=== PATIENT | male | born 1945 | race Caucasian/White ===

== ENCOUNTER 2018-03-24 10:29 | Emergency (ER) | payer MEDICARE ==
[2018-03-24 10:42] VITALS: RESP 18; TEMP 98.4
--- NOTE | 2018-03-24 10:58 | ED ---
General Adult HPI - General Chief complaint: Fall Stated complaint: Fall Time Seen by Provider: 03/24/18 10:48 Source: patient, RN notes reviewed Mode of arrival: ambulatory Limitations: no limitations - History of Present Illness Initial comments: Patient is a 72-year-old male presented to the emergency room today with a chief complaint of a fall that occurred 2 days ago. He states he was climbing up a ladder went to grab a board that was not attached and fell backwards onto dirt ground. Patient states he fell onto his back and then hit the back of his head. He states he did not lose consciousness. He states she's not on a blood thinner. He states he was able to get up and he continued to work. Patient states he was a little sore yesterday and he thought it would get better but this morning woke up and had worse pain in the neck and lower back. Patient states that he believes it's muscle wasn't worse with certain movements. Patient states he feels around both left and right side of the neck and also on the lower back. Patient denies any other complaints or symptoms. Patient denies any recent fever, chills, shortness of breath, chest pain, abdominal pain , nausea or vomiting, numbness or tingling, dysuria or hematuria, constipation or diarrhea, headaches or visual changes, or any other complaints. - Related Data Home Medications Medication Instructions Recorded Confirmed Aspirin EC [Ecotrin Low Dose] 81 mg PO DAILY 03/24/18 03/24/18 Fexofenadine HCl [Janie Allergy] 180 mg PO DAILY 03/24/18 03/24/18 Fluticasone Nasal [place] [Flonase 1 - 2 spr EA NOSTRIL DAILY PRN 03/24/18 Nasal [place]] Multivitamins, Thera [Multivitamin 1 tab PO DAILY 03/24/18 03/24/18 (formulary)] [place]-3 Fatty Acids [[place]-3] 1,000 mg PO DAILY 03/24/18 03/24/18 PARoxetine [Paxil] 20 mg PO HS 03/24/18 03/24/18 Previous Rx's Medication Instructions Recorded Cyclobenzaprine [Flexeril] 5 mg PO TID #8 tab 03/24/18 Allergies Allergy/AdvReac Type Severity Reaction Status Date / Time No Known Allergies Allergy Verified 03/24/18 11:25 Review of Systems ROS Statement: Those systems with pertinent positive or pertinent negative responses have been documented in the HPI. ROS Other: All systems not noted in ROS Statement are negative. Past Medical History Past Medical History: No Reported History History of Any Multi-Drug Resistant Organisms: None Reported Past Surgical History: No Surgical Hx Reported Past Psychological History: Depression Smoking Status: Never smoker Past Alcohol Use History: Daily Past Drug Use History: None Reported General Exam - General Exam Comments Initial Comments: General: The patient is awake and alert, in no distress, and does not appear acutely ill. Eye: Pupils are equal, round and reactive to light, extra-ocular movements are intact. No nystagmus. There is normal conjunctiva bilaterally. No signs of icterus. Ears, nose, mouth and throat: There are moist mucous membranes and no oral lesions. Neck: The neck is supple, there is no tenderness or JVD. Cardiovascular: There is a regular rate and rhythm. No murmur, rub or gallop is appreciated. Respiratory: Lungs are clear to auscultation, respirations are non-labored, breath sounds are equal. No wheezes, stridor, rales, or rhonchi. Gastrointestinal: Soft, non-distended, non-tender abdomen without masses or organomegaly noted. There is no rebound or guarding present. No CVA tenderness. Musculoskeletal: Normal appearance of the cervical, thoracic, lumbar spine with no obvious step-off or deformity. Patient has no tenderness midline of the cervical or thoracic spine. Tender at the L1-L2 and L3-L4 area of the lumbar spine. Patient does have paravertebral tenderness of the cervical spine both left and right side. Strength 5/5. Sensation intact. Pulses equal bilaterally 2+ . Neurological: A&O x 3. CN II-XII intact, There are no obvious motor or sensory deficits. Coordination appears grossly intact. Speech is normal. Skin: Skin is warm and dry and no rashes or lesions are noted. Psychiatric: Cooperative, appropriate mood & affect, normal judgment. Limitations: no limitations Course Vital Signs 03/24/18 10:36 Temperature 98.4 F Pulse Rate 72 Respiratory 18 Rate Blood Pressure 142/73 O2 Sat by Pulse 97 Oximetry Medical Decision Making - Medical Decision Making Patient reexamined at this time shows no signs of distress. His CT of the head and neck negative. X-ray of the lumbar spine is negative. Results were discussed with the patient. Patient's pain is in the muscular areas. Is advised to use heat. Short course of anti-inflammatories for pain. We discussed about possible muscle relaxant. Advised may make you drowsy and to be careful while taking these. Patient states he does not plan on doing much over the next few days. He plans follow-up with his family doctor. Patient advised return for any other concerns. Disposition Clinical Impression: Fall, Cervical strain Disposition: HOME SELF-CARE Condition: Good Instructions: Cervical Strain (ED) Additional Instructions: Please use medication as discussed. Please follow-up with family doctor in the next 2 days of symptoms have not improved. Please return to emergency room if the symptoms increase or worsen or for any other concerns. Prescriptions: Cyclobenzaprine [Flexeril] 5 mg PO TID #8 tab Is patient prescribed a controlled substance at d/c from ED?: No Referrals: Leanne Lantigua MD [Primary Care Provider] - 1-2 days Time of Disposition: 11:55
--- NOTE | 2018-03-24 11:36 | XR ---
PROCEDURE: XR lumbar spine 3V DATE AND TIME: 03/24/2018 11:07 AM REFERRING PHYSICIAN: Ramana Borrero CLINICAL INDICATION: PHH, Pain TECHNIQUE: Department protocol. COMPARISON: None FINDINGS: There is no fracture or malalignment. There is dextrocurvature, with prominently advanced spondylosis changes at several levels. The soft tissues are unremarkable. IMPRESSION: NO ACUTE PROCESS.
--- NOTE | 2018-03-24 11:42 | CT ---
EXAMINATION TYPE: CT brain richmond mckenna DATE OF EXAM: 03/24/2018 COMPARISON: NONE HISTORY: Fall from 6-7 feet on 03/22/18. Posterior head injury with neck pain CT DLP: 1547.8 mGycm Automated exposure control for dose reduction was used. TECHNIQUE: CT scan of the head and cervical spine are performed without contrast. FINDINGS: There is no acute intracranial hemorrhage, mass effect, or midline shift identified. The ventricles and sulci are within normal limits in size. The globes are intact and the visualized sin uses are clear. Cervical spine is visualized in its entirety from C1 through upper thoracic levels and demonstrates s atisfactory alignment without evidence of acute fracture or dislocation. Prevertebral soft tissue ap pears within normal limits. Prominent multilevel cervical spondylosis changes are noted. The C1-C2 ar ticulation is unremarkable. IMPRESSION: 1. There is no acute fracture or dislocation evident in the cervical spine. 2. No acute intracranial hemorrhage, mass effect, or midline shift is seen.
[2018-03-24 12:10] VITALS: BP 139/78; PULSE 67
== END 2018-03-24 12:10 | disposition home or self-care (01) ==
LOC: EC 10:29
DX: S16.1XXA Strain of muscle, fascia and tendon at neck level, initial encounter (principal); M54.5 Low back pain; F32.9 Major depressive disorder, single episode, unspecified; Z79.82 Long term (current) use of aspirin; Z79.899 Other long term (current) drug therapy; W17.89XA Other fall from one level to another, initial encounter; Y93.89 Activity, other specified; Y92.71 Barn as the place of occurrence of the external cause
CPT/HCPCS: 70450; 72100; 72125; 99284

== ENCOUNTER → 2018-06-24 | Outpatient (CLI) | payer MEDICARE | LOC: PTMAIN 09:55 | PROVIDERS: ATTEND Otolaryngology | DX: K21.9 Gastro-esophageal reflux disease without esophagitis (principal) | CPT/HCPCS: 31579 ==

== ENCOUNTER → 2018-10-03 | Outpatient (CLI) | payer MEDICARE ==
[2018-10-03 10:53] LABS: HCT 40.9 % (39.0-53.0); HGB 13.2 gm/dL (13.0-17.5); MCH 31.8 pg (25.0-35.0); MCHC 32.3 g/dL (31.0-37.0); MCV 98.5 fL (80.0-100.0); Mean Platelet Volume 7.1; Platelet Count 201 k/uL (150-450); RBC 4.15 m/uL (4.30-5.90); RDW 12.4 % (11.5-15.5); WBC 4.8 k/uL (3.8-10.6)
[2018-10-03 11:02] LABS: Potassium 4.6 mmol/L (3.5-5.1)
== END | disposition home or self-care (01) ==
LOC: LABPAT 09:35
PROVIDERS: ATTEND Internal Medicine Cardiovascular Disease
DX: Z01.812 Encounter for preprocedural laboratory examination (principal); R94.39 Abnormal result of other cardiovascular function study
CPT/HCPCS: 80051; 82565; 84520; 85027

== ENCOUNTER 2018-10-10 08:58 | Day surgery (SDC) | payer MEDICARE ==
[2018-10-04 12:35] VITALS: BMI 28.8
[~2018-10-10 08:58] MED LIST: ALPRAZolam 0.25 MG TAB PO PRN; ALPRAZolam 0.5 MG TAB PO PRN; ASPIRIN 325 MG TAB PO STA; ATORVASTATIN 80 MG TAB PO STA; NITROGLYCERIN SL TABS 0.4 MG TAB SUBLINGUAL PRN; SODIUM CHLORIDE 0.9% 1,000 ML in EMPTY BAG 1 BAG IV ONE
[2018-10-10] MEDS ORDERED: SODIUM CHLORIDE 0.9% 1,000 ML IV ONE (09:15)
[2018-10-10 09:29] VITALS: RESP 16; TEMP 98
[2018-10-10] MEDS ORDERED: fentaNYL (PF) 50 MCG/ML 2 ML AMP IVP ONE (11:23)
[2018-10-10] MEDS ORDERED: LIDOCAINE 1% INJ 10MG/ML (20 ML MDV) SQ ONE (11:26)
[2018-10-10] MEDS: VERAPAMIL SYRINGE (5 MG/10 ML) INTRAARTER ONE ×2 (11:28→11:43)
[2018-10-10] MEDS ORDERED: HEPARIN SODIUM 1,000 UN/ML (10ML VL) IV ONE (11:29)
[2018-10-10] MEDS ORDERED: IOPAMIDOL-370 125ML BTL INJ ONE (11:43)
[2018-10-10] MEDS ORDERED: RX INFO: IV CONTRAST WAS GIVEN 1 EACH MISC MISCELLANE PRN (11:50)
--- NOTE | 2018-10-10 11:58 | P.CARDCATH ---
Date of Procedure: 10/10/18 Preoperative Diagnosis: Chest pain and positive stress test Postoperative Diagnosis: The same Procedure(s) Performed: Left heart catheterization without left ventriculography Description of Procedure: HISTORY: This is a 73-year-old gentleman with history of smoking and strong family history ischemic or disease who was evaluated by stress test because of chest pains. This was reported as showing ischemia involving the apex. Patient is advised to have a cardiac catheterization for definite diagnosis CONSENT:I have discussed the risks, benefits and alternative therapies for the above-mentioned procedure and for both sedation/analgesia as well as necessary blood product administration, if indicated, as they pertain to this patient. The patient has indicated understanding and acceptance of the risks and procedures discussed. PROCEDURE: Patient was brought to the lab in a fasting state. Patient was given some IV sedation. The right wrist is infiltrated with lidocaine and right radial l artery was entered using Seldinger technique. A 6-Spanish catheter was left in place and selective coronary arteriography was performed. Patient tolerated the procedure well. TR band was applied for hemostasis No immediate complications were noted and patient was transferred to [facility] in a stable condition Conscious Sedation: Versed 0mg Fentanyl 50 g Duration 20minutes HEMODYNAMICS: The aortic pressure is 120/70. Left ventricular end-diastolic pressure was 8. There was no gradient across the aortic valve SELECTIVE CORONARY ARTERIOGRAPHY: LEFT MAIN: Normal length and patent without obstructive disease THE LEFT ANTERIOR DESCENDING CORONARY ARTERY:. This is a fair caliber vessel giving rise to small diagonal septal branches. The LAD and branches are free of any significant occlusive disease THE LEFT CIRCUMFLEX AND IS CORONARY ARTERY:. This is a moderate caliber vessel giving rise good-sized OM branch. Nondominant in the distribution. THE RIGHT CORONARY ARTERY: This is a dominant vessel giving rise to good-sized PDA and PLV branches. The RCA and its branches are free of any significant occlusive disease LEFT VENTRICULOGRAPHY:. Not performed FINAL IMPRESSION:, Normal coronary arteries. Normal end-diastolic pressure PLAN: Maximum medical therapy and this factor modification PROGNOSIS:. Good
[2018-10-10] MEDS ORDERED: SODIUM CHLORIDE 0.9% 1,000 ML IV SCH (12:00)
[2018-10-10 16:48] VITALS: BP 120/69; PULSE 69
== END 2018-10-10 16:57 | disposition home or self-care (01) ==
LOC: CATHCVL 08:58
PROVIDERS: ATTEND Internal Medicine Cardiovascular Disease
DX: R07.9 Chest pain, unspecified (principal); R94.39 Abnormal result of other cardiovascular function study; Z82.49 Family history of ischemic heart disease and other diseases of the circulatory system; Z87.891 Personal history of nicotine dependence; R55 Syncope and collapse; Z79.82 Long term (current) use of aspirin; Z79.899 Other long term (current) drug therapy
CPT/HCPCS: 93458; C1769 ×4; C1894 ×2; J2001; J3010; J1644; Q9967; 93454

== ENCOUNTER → 2020-08-24 | Day surgery (SDC) | payer MEDICARE ==
[2020-08-23 08:21] VITALS: BMI 28.1
[~2020-08-24] MED LIST changes: -ALPRAZolam 0.25 MG TAB PO PRN; -ALPRAZolam 0.5 MG TAB PO PRN; -ASPIRIN 325 MG TAB PO STA; -ATORVASTATIN 80 MG TAB PO STA; +LACTATED RINGERS 1,000 ML IV ONE; +LACTATED RINGERS 1,000 ML IV SCH; +LIDOCAINE 1% (10MG/ML) FOR IV START INTRADERMA ONE; +LIDOCAINE 1% INJ 10MG/ML (20 ML MDV) ONE; -NITROGLYCERIN SL TABS 0.4 MG TAB SUBLINGUAL PRN; +PROPOFOL 10 MG/ML 20 ML VIAL IV ONE; -SODIUM CHLORIDE 0.9% 1,000 ML in EMPTY BAG 1 BAG IV ONE
[2020-08-24 09:04] VITALS: TEMP 97.6
--- NOTE | 2020-08-24 09:20 | P.GSHP ---
History of Present Illness H&P Date: 08/24/20 Chief Complaint: GERD, rectal bleeding Patient here today for upper and lower endoscopy. He believes his last colonoscopy was 4-5 years ago. History of polyps at that time. Recently with fecal occult blood test positive. Some heartburn at times. No dysphagia. Some weight loss. Past Medical History Past Medical History: No Reported History Additional Past Medical History / Comment(s): SEASONAL ALLERGIES. + COLOGARD TEST History of Any Multi-Drug Resistant Organisms: None Reported Past Surgical History: Heart Catheterization, Tonsillectomy Additional Past Surgical History / Comment(s): EYE SX CHILD. COLONOSCOPY. TESTICLE REMOVED Past Anesthesia/Blood Transfusion Reactions: No Reported Reaction Smoking Status: Former smoker - Past Family History Brother(s) Family Medical History: Deep Vein Thrombosis (DVT) Medications and Allergies Home Medications Medication Instructions Recorded Confirmed Type Aspirin EC [Ecotrin Low Dose] 81 mg PO DAILY 03/24/18 08/23/20 History Fexofenadine HCl [Janie Allergy] 180 mg PO DAILY 03/24/18 08/23/20 History Fluticasone Nasal [place] [Flonase 1 - 2 spr EA NOSTRIL DAILY PRN 03/24/18 08/23/20 History Nasal [place]] Multivitamins, Thera [Multivitamin 1 tab PO DAILY 03/24/18 08/23/20 History (formulary)] PARoxetine [Paxil] 20 mg PO HS 03/24/18 08/23/20 History Ascorbic Acid [Vitamin C] 1,000 mg PO DAILY 08/23/20 08/23/20 History B,C/Folic/Zinc/Copper Ox/Vit E 1 each PO DAILY 08/23/20 08/23/20 History [Stress B-Complex Tablet] [place]-3 Fatty Acids [[place]-3] 1,000 mg PO DAILY 08/23/20 08/23/20 History Potassium Gluconate 99 mg PO DAILY 08/23/20 08/23/20 History Ubidecarenone [Co Q-10] 100 mg PO DAILY 08/23/20 08/23/20 History Allergies Allergy/AdvReac Type Severity Reaction Status Date / Time No Known Allergies Allergy Verified 08/23/20 08:11 Surgical - Exam Vital Signs Temp Pulse Resp BP Pulse Ox 97.6 F 83 18 150/83 96 08/24/20 09:03 08/24/20 09:03 08/24/20 09:03 08/24/20 09:03 08/24/20 09:03 Physical exam: General: Well-developed, well-nourished HEENT: Normocephalic, sclerae nonicteric Abdomen: Nontender, nondistended Extremities: No edema Neuro: Alert and oriented Assessment and Plan (1) Rectal bleeding Narrative/Plan: Will proceed with upper and lower endoscopy Current Visit: Yes Status: Acute Code(s): K62.5 - HEMORRHAGE OF ANUS AND RECTUM SNOMED Code(s): 67942719
--- NOTE | 2020-08-24 09:41 | P.PCN ---
Date of Procedure: 08/24/20 Procedure(s) Performed: PREOPERATIVE DIAGNOSIS: GERD, rectal bleeding POSTOPERATIVE DIAGNOSIS: Mild gastritis PROCEDURE: 1. EGD with biopsy 2. Colonoscopy with snare polypectomy ANESTHESIA: MAC SURGEON: Ramana Calles M.D. SPECIMENS: Antrum ENDOSCOPIC PROCEDURE: The patient was on the endoscopy table in the left decubitus position. The Olympus gastroscope was inserted into the oropharynx and passed under direct visualization to the region of the third portion of the duodenum. From that point the scope was slowly withdrawn inspecting all surfaces carefully. There were no neoplastic inflammatory or polypoid lesions throughout the duodenum. The pylorus was widely patent. The stomach was carefully inspected. There was mild gastritis present. A biopsy of the antrum took place to rule out H. pylori. Retroflexion revealed a normal hiatus. The esophagus was then carefully examined. There were no neoplastic inflammatory or polypoid lesions throughout the visualized esophagus. The patient was kept on the endoscopy table in the left decubitus position. The Olympus colonoscope was inserted into the anus and passed under direct visualization to the base of the cecum. The appendiceal orifice was visualized. From that point the scope was slowly withdrawn inspecting all surfaces car efully. There were no neoplastic inflammatory or polypoid lesions throughout the cecum or ascending colon. In the hepatic flexure region a small polyp was seen and removed using the snare with cautery technique. The remainder of the transverse descending sigmoid and rectum appeared normal. There was no visible diverticulosis seen. Digital rectal examination was normal. The patient was taken to the recovery room in stable condition per anesthesia guidelines. RECOMMENDATIONS: Await biopsy results. Anticipate bowel colonoscopy 5 years.
[2020-08-24 09:45] VITALS: RESP 16
[2020-08-24 10:01] VITALS: BP 125/65; PULSE 58
== END ==
LOC: ORWHC2ENDO 08:38
PROVIDERS: ATTEND Surgery
DX: D12.3 Benign neoplasm of transverse colon (principal); K29.50 Unspecified chronic gastritis without bleeding; K21.9 Gastro-esophageal reflux disease without esophagitis; Z90.79 Acquired absence of other genital organ(s); Z98.890 Other specified postprocedural states; Z82.49 Family history of ischemic heart disease and other diseases of the circulatory system; Z79.1 Long term (current) use of non-steroidal anti-inflammatories (NSAID); Z79.82 Long term (current) use of aspirin; Z79.899 Other long term (current) drug therapy; J30.1 Allergic rhinitis due to pollen
CPT/HCPCS: 88305; 45385; 43239; J2001; J2704

== ENCOUNTER → 2023-03-15 | Outpatient (CLI) | payer OTHER ==
[2023-03-15 16:36] LABS: African American GFR (CKD) 66.3 (60.0-200.0); Anion Gap 8.8 mmol/L (10.00-18.00); BUN/Creat Ratio 23.2 Ratio (12.00-20.00); Blood Urea Nitrogen 28.3 mg/dL (9.0-27.0); Calcium 9.2 mg/dL (8.7-10.3); Carbon Dioxide 25.7 mmol/L (20.0-27.5); Non-African American GFR(CKD) 57.2 (60.0-200.0); Potassium 4.7 mmol/L (3.5-5.5)
== END | disposition home or self-care (01) ==
LOC: LABWHC1 07:46
PROVIDERS: ATTEND Nurse Practitioner
DX: I35.1 Nonrheumatic aortic (valve) insufficiency (principal)
CPT/HCPCS: 36415; 80048

== ENCOUNTER 2024-04-24 14:35 | Emergency (ER) | payer MEDICARE ==
[2024-04-24] MEDS: diphenhydrAMINE 50 MG/ML 1 ML VIAL IVP STA (15:24)
[2024-04-24] MEDS: FAMOTIDINE 20 MG/2 ML VIAL IV STA (15:24)
[2024-04-24 16:12] VITALS: BP 156/80; PULSE 82; RESP 16; TEMP 98
--- NOTE | 2024-04-24 17:55 | ED ---
Allergic Reaction HPI <Eric Person - Last Filed: 04/25/24 11:12> - General Source: EMS Mode of arrival: EMS - History of Present Illness MD Complaint: allergic reaction, facial swelling -: minutes(s) Exposure: insect bite Symptoms: rash, itching, facial swelling Severity: moderate Treatment Prior to Arrival: benadryl, epinephrine, steroids <Sarath Londono - Last Filed: 05/06/24 12:36> - General Chief complaint: Allergic Reaction Stated complaint: allergic reaction Time Seen by Provider: 04/24/24 14:38 - History of Present Illness Initial Comments: This patient is a 78-year-old man who presents here after going to urgent care to be seen about bee stings. The patient states he was developing facial swelling, itching, rash. He states that he was treated with medications at the urgent care and forwarded here. I report states that he was given epinephrine, Solu-Medrol, diphenhydramine. Patient states that he seems to have had some improvement in his symptoms. No dyspnea. (Sarath Londono) - Related Data Home Medications Medication Instructions Recorded Confirmed Aspirin EC [Ecotrin Low Dose] 81 mg PO DAILY 03/24/18 08/23/20 Fexofenadine HCl [Janie Allergy] 180 mg PO DAILY 03/24/18 08/23/20 Fluticasone Nasal [place] [Flonase 1 - 2 spr EA NOSTRIL DAILY PRN 03/24/18 08/23/20 Nasal [place]] Multivitamins, Thera [Multivitamin 1 tab PO DAILY 03/24/18 08/23/20 (formulary)] PARoxetine [Paxil] 20 mg PO HS 03/24/18 08/23/20 Ascorbic Acid [Vitamin C] 1,000 mg PO DAILY 08/23/20 08/23/20 B,C/Folic/Zinc/Copper Ox/Vit E 1 each PO DAILY 08/23/20 08/23/20 [Stress B-Complex Tablet] [place]-3 Fatty Acids [[place]-3] 1,000 mg PO DAILY 08/23/20 08/23/20 Potassium Gluconate [Potassium 99 mg PO DAILY 08/23/20 08/23/20 Gluconate ER] Ubidecarenone [Co Q-10] 100 mg PO DAILY 08/23/20 08/23/20 Previous Rx's Medication Instructions Recorded Famotidine 20 mg PO DAILY #10 tab 04/25/24 predniSONE [Deltasone] 60 mg PO DAILY #5 tab 04/25/24 Allergies Allergy/AdvReac Type Severity Reaction Status Date / Time bee venom protein (honey bee) Allergy Anaphylaxis Verified 04/24/24 14:45 Review of Systems ROS Other: All systems not noted in ROS Statement are negative. <Eric Person - Last Filed: 04/25/24 11:12> ROS Other: All systems not noted in ROS Statement are negative. Constitutional: Denies: fever, chills, weakness Eyes: Denies: vision change ENT: Denies: throat pain, congestion Respiratory: Denies: cough, dyspnea Cardiovascular: Denies: chest pain, palpitations, orthopnea, edema, syncope Gastrointestinal: Reports: nausea, vomiting. Denies: abdominal pain Genitourinary: Denies: dysuria Musculoskeletal: Denies: back pain Skin: Reports: rash Neurological: Denies: headache, weakness <Sarath Londono - Last Filed: 05/06/24 12:36> ROS Statement: Those systems with pertinent positive or pertinent negative responses have been documented in the HPI. Past Medical History Past Medical History: No Reported History Additional Past Medical History / Comment(s): SEASONAL ALLERGIES. + COLOGARD TEST History of Any Multi-Drug Resistant Organisms: None Reported Past Surgical History: Heart Catheterization, Tonsillectomy Additional Past Surgical History / Comment(s): EYE SX CHILD. COLONOSCOPY. TESTICLE REMOVED Past Anesthesia/Blood Transfusion Reactions: No Reported Reaction Past Psychological History: Anxiety Smoking Status: Former smoker - Past Family History Brother(s) Family Medical History: Deep Vein Thrombosis (DVT) <Sarath Londono - Last Filed: 05/06/24 12:36> General Exam General appearance: alert, in no apparent distress Head exam: Present: atraumatic, normocephalic Eye exam: Present: normal appearance. Absent: scleral icterus, conjunctival injection ENT exam: Present: normal oropharynx Neck exam: Present: normal inspection Respiratory exam: Present: normal lung sounds bilaterally. Absent: respiratory distress, wheezes, rales, rhonchi, stridor, accessory muscle use Cardiovascular Exam: Present: regular rate, normal rhythm, normal heart sounds. Absent: systolic murmur, diastolic murmur, rubs, gallop GI/Abdominal exam: Present: soft. Absent: distended, tenderness, guarding, r ebound, rigid, mass Extremities exam: Present: normal inspection, normal capillary refill. Absent: pedal edema, calf tenderness Back exam: Absent: CVA tenderness (R), CVA tenderness (L) Neurological exam: Present: alert Skin exam: Present: warm, dry, intact, normal color <Sarath Londono - Last Filed: 05/06/24 12:36> Course Vital Signs 04/24/24 04/24/24 14:38 16:11 Temperature 98.5 F 98 F Pulse Rate 78 82 Respiratory 18 16 Rate Blood Pressure 135/72 156/80 O2 Sat by Pulse 97 98 Oximetry Medical Decision Making <Sarath Londono - Last Filed: 05/06/24 12:36> - Medical Decision Making Patient is observed in number of hours in the emergency department. He did not have recurrence of symptoms here. He was feeling better and did request to go home. Discussed appropriate further care and follow-up as well as return parameters. Was pt. sent in by a medical professional or institution (, PA, ASSURANCE ASSOCIATE, urgent care, hospital, or senior care...) When possible be specific @ -Patient sent from urgent care to have further evaluation and treatment Did you speak to anyone other than the patient for history (EMS, parent, family, police, friend...)? What history was obtained from this source @ -[No] Did you review nursing and triage notes (agree or disagree)? Why? @ -[I reviewed and agree with nursing and triage notes] Were old charts reviewed (outside hosp., previous admission, EMS record, old EKG, old radiological studies, urgent care reports/EKG's, senior care records)? Report findings @ -[No old charts were reviewed] Differential Diagnosis (chest pain, altered mental status, abdominal pain women, abdominal pain men, vaginal bleeding, weakness, fever, dyspnea, syncope, headache, dizziness, GI bleed, back pain, seizure, CVA, palpatations, mental health, musculoskeletal)? @ -Allergic reaction EKG interpreted by me (3pts min.). @ -[As above] X-rays interpreted by me (1pt min.). @ -[None done] CT interpreted by me (1pt min.). @ -[None done] U/S interpreted by me (1pt. min.). @ -[None done] What testing was considered but not performed or refused? (CT, X-rays, U/S, labs)? Why? @ -[None] What meds were considered but not given or refused? Why? @ -[None] Did you discuss the management of the patient with other professionals (professionals i.e. , PA, ASSURANCE ASSOCIATE, lab, RT, psych nurse, social services specialist, boardinghouse keeper, te acher, agricultural extension officer, classification case manager)? Give summary @ -[No] Was smoking cessation discussed for >3mins.? @ -[No] Was critical care preformed (if so, how long)? @ -[No] Were there social determinants of health that impacted care today? How? (Homelessness, low income, unemployed, alcoholism, drug addiction, transportation, low edu. Level, literacy, decrease access to med. care, prison, rehab)? @ -[No] Was there de-escalation of care discussed even if they declined (Discuss DNR or withdrawal of care, Hospice)? DNR status @ -[No] What co-morbidities impacted this encounter? (DM, HTN, Smoking, COPD, CAD, Cancer, CVA, ARF, Chemo, Hep., AIDS, mental health diagnosis, sleep apnea, morbid obesity)? @ -[None] Was patient admitted / discharged? Hospital course, mention meds given and route, prescriptions, significant lab abnormalities, going to OR and other pertinent info. @ -[See above Undiagnosed new problem with uncertain prognosis? @ -[No] Drug Therapy requiring intensive monitoring for toxicity (Heparin, Nitro, Insulin, Cardizem)? @ -[No] Were any procedures done? @ -[No] Diagnosis/symptom? @ -[Allergic reaction/mild anaphylaxis Acute, or Chronic, or Acute on Chronic? @ -[Acute Uncomplicated (without systemic symptoms) or Complicated (systemic symptoms)? @ -[Uncomplicated Side effects of treatment? @ -[No] Exacerbation, Progression, or Severe Exacerbation? @ -[No] Poses a threat to life or bodily function? How? (Chest pain, [place], [place], pneumonia, PE, COPD, DKA, ARF, appy, cholecystitis, CVA, Diverticulitis, Homicidal, Suicidal, threat to staff... and all critical care pts) @ -[No] (Sarath Londono) Disposition <Eric Person - Last Filed: 04/25/24 11:12> Is patient prescribed a controlled substance at d/c from ED?: No <Sarath Londono - Last Filed: 05/06/24 12:36> Clinical Impression: Bee sting reaction Disposition: HOME SELF-CARE Condition: Good Instructions (If sedation given, give patient instructions): Insect Bite or Sting (ED) Prescriptions: predniSONE [Deltasone] 60 mg PO DAILY #5 tab Famotidine 20 mg PO DAILY #10 tab Referrals: [facility] [Primary Care Provider] - 1-2 days
== END 2024-04-24 18:06 | disposition home or self-care (01) ==
LOC: EC 14:35
DX: T63.441A Toxic effect of venom of bees, accidental (unintentional), initial encounter (principal); Z87.891 Personal history of nicotine dependence; Z91.030 Bee allergy status
CPT/HCPCS: 99284; 96374; 96375; J1200; J3490